=== PATIENT | female | born 1945 | race Caucasian/White ===

== ENCOUNTER 2022-02-08 16:16 | Observation (INO) ==
[2022-02-08 17:03] LABS: Basophils # (auto) 0.05 K/uL (0-0.2); Basophils % (auto) 0.6 %; Eosinophils # (auto) 0.42 K/uL (0-0.5); Eosinophils % (auto) 5.2 %; Hematocrit (blood only) 44.6 % (37-47); Immature Granulocytes # (auto) 0.01 K/uL (0.00-0.02); Immature Granulocytes % (auto) 0.1 %; Lymphocytes # (auto) 2.73 K/uL (1.2-3.4); Lymphocytes % (auto) 33.7 %; Mean Corpuscular Hemoglobin 28.6 pg (25-34); Mean Corpuscular Hgb Conc 33.6 g/dL (32-36); Mean Corpuscular Volume 85.1 fL (80-100); Mean Platelet Volume 10.4 fL (7.4-10.4); Monocytes # (auto) 0.75 K/uL (0.11-0.59); Monocytes % (auto) 9.3 %; Neutrophils # (auto) 4.13 K/uL (1.4-6.5); Neutrophils % (auto) 51.1 %; Platelet Count 217 K/uL (130-400); RDW Coefficient of Variation 13.8 % (11.5-14.5); Red Blood Count 5.24 M/uL (4.2-5.4); White Blood Count 8.09 K/uL (4.8-10.8)
--- NOTE | 2022-02-08 17:09 | Emergency Department Note ---
Impression & Plan Heart block AV second degree ED Provider Note NAME: ABEL CHEN AGE: 76 SEX: F : 1945 ARRIVES VIA: Walk-In INFORMANT: Patient, ED PROVIDER(S): Jaswinder Lane DO CHIEF COMPLAINT: Generalized weakness HPI: The patient is a 76-year-old female who presented to the emergency department for an evaluation of generalized weakness. The patient started noticing symptoms recently where she was having generalized weakness as well as dyspnea on exertion. The patient denies having any fever. She denies having any chest pain. She has had no lower extremity swelling. She denies having any rashes or other illnesses. She states that the symptoms may have begun a week or so ago. She went to see her family doctor today but was sent to the emergency department because of an abnormal EKG. The patient was noted to have bradycardia. She does not take a beta-sheryl. She does not have a history of Lyme disease. She does have a remote history of endocarditis. The patient states that she had an EKG done in the office. She states that her family doctor did consult with cardiology and the patient was referred to the emergency department. Patient states that her symptoms improved with rest. ROS: See above HPI for pertinent positives & negatives. A total of 10 systems reviewed and were otherwise negative. PAST MEDICAL HISTORY: See Below PAST SURGICAL HISTORY: See Below FAMILY HISTORY: See Below SOCIAL HISTORY: See Below HOME MEDICATIONS: See Below ALLERGIES: See Below VITALS: See Below PHYSICAL EXAMINATION: GENERAL: Patient is awake alert in no acute distress patient is resting comfortably and showing no signs of anxiety EYES: The conjunctivae are clear. The pupils are round and reactive. EARS, NOSE, MOUTH AND THROAT: The nose is without any evidence of any deformity. NECK: The neck is nontender and supple. RESPIRATORY: Normal respiratory effort is noted there is no evidence of wheezing rhonchi or rales CARDIOVASCULAR: Bradycardic heart sounds were noted to auscultation. There is no definite murmur. GASTROINTESTINAL: The abdomen is soft. Abdomen is nontender. MUSCULOSKELETAL/EXTREMITIES: There is no evidence of gross deformity full range of motion is noted in the hips and shoulders. SKIN: There is no obvious evidence of any rash. There are no petechiae, pallor or cyanosis noted. NEUROLOGIC: Patient is awake alert and oriented x3 MEDICAL DECISION MAKING: The patient is a 76-year-old female who presented to the emergency department for an evaluation of abnormal EKG. Patient was having generalized weakness as well as some shortness of breath with exertion. She was noted to have heart block and was sent to the emergency department for further evaluation. The patient's blood pressure was not low. She was symptomatic with any exertion. I discussed the patient's laboratory and radiographic studies with her. I also discussed her case with the [facility] They have agreed to evaluate the patient in the emergency department for further management and disposition. Triage Nursing notes reviewed. Prior medical records reviewed Vital Signs: reviewed and remarkable for bradycardia and hypertension. Differential diagnosis: Infection, dehydration, metabolic abnormality, hypo/hyperglycemia, electrolyte disturbance, anemia, hypoxia, cardiac sources, intracerebral event, toxicologic, neurologic, as well as other pathologies. ER treatment provided: See below Diagnostics interpreted by me: ECG: EKG was obtained in the emergency department. My interpretation is second- degree heart block at 45 bpm. There were no PVCs noted. There is no acute ST segment abnormalities noted. No previous tracing was available. Cardiac Monitoring: An order was placed for continuous cardiac monitoring. The monitor shows a rate of 44 bpm with second-degree heart block. Laboratory studies: As stated above and show below. Imaging studies: See below Consultation(s): I discussed this case with Ashanti who is [facility] for [facility]. Past Med/Surg History Medical History (Updated 02/08/22 @ 23:[address] DO) Diabetes Hypertension Hypothyroidism (acquired) Pancreatic cyst Surgical History H/O: hysterectomy History of bowel resection Hx of cholecystectomy Social History Smoking Status: Never smoker Hx Alcohol Use: No Hx Substance Use: No Preferred Language: Lithuanian Beliefs That Will Affect Care: None Current Living Situation: Spouse Feels Safe at Home: Yes Safety Concerns: Feels Safe At This Time Assistive Devices: None Allergies Allergies Allergy/AdvReac Type Severity Reaction Status Date / Time Penicillins Allergy Severe Anaphylaxis Verified 02/08/22 17:50 house dust Allergy Intermediate SNEEZING, Verified 02/08/22 17:50 CONGESTION mold Allergy Intermediate SNEEZING, Verified 02/08/22 17:50 CONGESTION Sulfa (Sulfonamide Allergy Intermediate Hives Verified 02/08/22 17:50 Antibiotics) Yeast Allergy Intermediate SNEEZING, Verified 02/08/22 17:50 CONGESTION nickel Allergy Mild Rash Verified 02/08/22 17:50 Iodinated Contrast Media AdvReac Intermediate FACE Verified 02/08/22 17:50 FLUSHES, VOMITING MYCINS Allergy Severe SHORT OF Uncoded 02/08/22 17:50 BREATH, HIVES Home Meds Home Medications Medication Instructions Recorded Confirmed Prevagen 10 mg PO DAILY 02/08/22 02/08/22 cetirizine 5 mg tablet 5 mg PO DAILY 02/08/22 02/08/22 cranberry 400 mg capsule 400 mg PO DAILY 02/08/22 02/08/22 cyanocobalamin (vitamin B-12) 100 100 mcg PO DAILY 02/08/22 02/08/22 mcg tablet (Vitamin B-12) gppyuwunawm-[id number]-erh C-Mn 500 1 cap PO BID 02/08/22 02/08/22 mg-400 mg capsule krill 1,000 mg-omega-3 170 mg-dha 1 cap PO DAILY 02/08/22 02/08/22 50 mg-epa 80 [id number]-bvixpg-jqtti capsule (krill oil) levothyroxine 112 mcg tablet 112 mcg PO DAILYBB 02/08/22 02/08/22 lisinopril 30 mg tablet 30 mg PO DAILY 02/08/22 02/08/22 multivit with min-folic 1 tab PO DAILY 02/08/22 02/08/22 acid-lutein 200 mcg-137.5 mcg chewable tablet (Adult Multivitamin (w-lutein)) psyllium 1 tbsp PO DAILY 02/08/22 02/08/22 sucralfate 1 gram tablet 1 g PO TID PRN 02/08/22 02/08/22 Results & Data (ED) Vital Signs Vital Signs - 24 hr 02/08/22 16:27 02/08/22 17:15 Temperature 36.9 C Temperature Source Temporal Artery Scan Pulse Rate 43 L Pulse Rate [Apical] 45 L Pulse Rhythm [Apical] Regular Pulse Strength [Apical] Normal Respiratory Rate 16 15 Blood Pressure 198/68 H Blood Pressure [Right Arm] 170/72 H Blood Pressure Mean 111 Blood Pressure Mean [Right Arm] 104 Pulse Oximetry 96 95 Oxygen Delivery Method Room Air Room Air Sepsis Recent Fever Within 48 Hours No Sepsis New/Unexplained Change in Mental Status N/A Sepsis Action Taken by Nursing No Action Required Home Medications Current Medication List: was personally reviewed by me Laboratory Data Attestation: I reviewed the patient's lab results. Result diagrams: 02/08/22 16:40 02/09/22 05:19 Lab Results 02/08/22 02/08/22 02/08/22 Range/Units 16:40 16:40 16:40 WBC 8.09 (4.8-10.8) K/uL RBC 5.24 (4.2-5.4) M/uL Hgb 15.0 (12.0-16.0) g/dL Hct 44.6 (37-47) % MCV 85.1 (80-100) fL MCH 28.6 (25-34) pg MCHC 33.6 (32-36) g/dL RDW Std Deviation 43.0 (36.4-46.3) fL RDW Coeff of Valerie 13.8 (11.5-14.5) % Plt Count 217 (130-400) K/uL MPV 10.4 (7.4-10.4) fL Immature Gran % (Auto) 0.1 % Neut % (Auto) 51.1 % Lymph % (Auto) 33.7 % [place] % (Auto) 9.3 % Eos % (Auto) 5.2 % Baso % (Auto) 0.6 % Neut # (Auto) 4.13 (1.4-6.5) K/uL Lymph # (Auto) 2.73 (1.2-3.4) K/uL [place] # (Auto) 0.75 H (0.11-0.59) K/uL Eos # (Auto) 0.42 (0-0.5) K/uL Baso # (Auto) 0.05 (0-0.2) K/uL Immature Gran # (Auto) 0.01 (0.00-0.02) K/uL PT 12.1 H (9.0-12.0) Seconds INR 1.1 (0.9-1.1) APTT 27.5 (21.0-31.0) Seconds PTT Ratio 1.0 Sodium 141 (136-145) mmol/L Potassium 4.3 (3.5-5.1) mmol/L Chloride 107 (98-107) mmol/L Carbon Dioxide 27 (21-32) mmol/L Anion Gap 7 (3-11) BUN 20 (6-23) mg/dl Creatinine 0.90 (0.6-1.2) mg/dl Est Cr Clr Drug Dosing Not Reportable Est GFR ( Amer) 73.0 ml/min Est GFR (Non-Af Amer) 63.0 ml/min BUN/Creatinine Ratio 22.2 H (10-20) Glucose 130 H (70-99(Fasting)) mg/dl Calcium 9.4 (8.5-10.1) mg/dl Magnesium 2.2 (1.7-2.4) mg/dl Total Bilirubin 0.6 (0.2-1.0) mg/dl AST 22 (13-39) U/L ALT 22 (7-52) U/L Alkaline Phosphatase 164 H (34-104) U/L Troponin I High Sens 19.3 H (0-14) pg/ml Total Protein 7.4 (6.0-8.3) gm/dl Albumin 4.3 (3.4-5.0) gm/dl Globulin 3.1 (2.5-4.0) gm/dl Albumin/Globulin Ratio 1.4 (0.9-2) TSH (0.300-4.500) uIu/ml Lyme Disease IgG Ab (Negative) Lyme Disease IgM Ab (Negative) SARS-CoV-2, RNA, NAAT (NEGATIVE) 02/08/22 02/08/22 02/08/22 Range/Units 17:15 17:15 17:19 WBC (4.8-10.8) K/uL RBC (4.2-5.4) M/uL Hgb (12.0-16.0) g/dL Hct (37-47) % MCV (80-100) fL MCH (25-34) pg MCHC (32-36) g/dL RDW Std Deviation (36.4-46.3) fL RDW Coeff of Valerie (11.5-14.5) % Plt Count (130-400) K/uL MPV (7.4-10.4) fL Immature Gran % (Auto) % Neut % (Auto) % Lymph % (Auto) % [place] % (Auto) % Eos % (Auto) % Baso % (Auto) % Neut # (Auto) (1.4-6.5) K/uL Lymph # (Auto) (1.2-3.4) K/uL [place] # (Auto) (0.11-0.59) K/uL Eos # (Auto) (0-0.5) K/uL Baso # (Auto) (0-0.2) K/uL Immature Gran # (Auto) (0.00-0.02) K/uL PT (9.0-12.0) Seconds INR (0.9-1.1) APTT (21.0-31.0) Seconds PTT Ratio Sodium (136-145) mmol/L Potassium (3.5-5.1) mmol/L Chloride (98-107) mmol/L Carbon Dioxide (21-32) mmol/L Anion Gap (3-11) BUN (6-23) mg/dl Creatinine (0.6-1.2) mg/dl Est Cr Clr Drug Dosing Est GFR ( Amer) ml/min Est GFR (Non-Af Amer) ml/min BUN/Creatinine Ratio (10-20) Glucose (70-99(Fasting)) mg/dl Calcium (8.5-10.1) mg/dl Magnesium (1.7-2.4) mg/dl Total Bilirubin (0.2-1.0) mg/dl AST (13-39) U/L ALT (7-52) U/L Alkaline Phosphatase (34-104) U/L Troponin I High Sens (0-14) pg/ml Total Protein (6.0-8.3) gm/dl Albumin (3.4-5.0) gm/dl Globulin (2.5-4.0) gm/dl Albumin/Globulin Ratio (0.9-2) TSH 0.944 (0.300-4.500) uIu/ml Lyme Disease IgG Ab Negative (Negative) Lyme Disease IgM Ab Negative (Negative) SARS-CoV-2, RNA, NAAT NEGATIVE (NEGATIVE) Administered Medications Cetirizine HCl (Cetirizine Hcl 10 Mg Tablet) 5 mg PO DAILY RADHA Stop: 03/11/22 08:59 Last Admin: 02/09/22 08:27 Dose: 5 mg Documented by: [id number] Cyanocobalamin (Cyanocobalamin (B-12) 100 Mcg Tablet) 100 mcg PO DAILY RADHA Stop: 03/11/22 08:59 Last Admin: 02/09/22 08:29 Dose: 100 mcg Documented by: [id number] Enoxaparin Sodium (Enoxaparin Inj 40 Mg/0.4 Ml Syr) 40 mg SQ QAM RADHA Stop: 03/11/22 08:59 Last Admin: 02/09/22 08:29 Dose: 40 mg Documented by: [id number] Insulin Aspart (Insulin Aspart Per Unit) 0 units SC ACHS RADHA Stop: 03/10/22 20:59 Last Admin: 02/09/22 13:23 Dose: Not Given Documented by: [id number] Cosigned by: [id number] Admin: 02/09/22 08:04 Dose: Not Given Documented by: [id number] Cosigned by: [id number] Admin: 02/08/22 22:12 Dose: Not Given Documented by: [id number] Levothyroxine Sodium (Levothyroxine Sodium 112 Mcg Tablet) 112 mcg PO DAILYBB [facility] Stop: 03/11/22 06:29 Last Admin: 02/09/22 05:59 Dose: 112 mcg Documented by: [id number] Lisinopril (Lisinopril 10 Mg Tab) 30 mg PO DAILY [facility] Stop: 03/11/22 08:59 Last Admin: 02/09/22 08:29 Dose: 30 mg Documented by: [id number] Miscellaneous (Prevagen (?): Order Awaiting Action) 1 ea N/A QS [facility] Stop: 03/11/22 07:59 Last Admin: 02/09/22 08:55 Dose: Not Given Documented by: [id number] Psyllium Hydrophilic Mucilloid (Psyllium 58.6% Powder Packet) 1 pkt PO DAILY [facility] Stop: 03/11/22 08:59 Last Admin: 02/09/22 08:31 Dose: 1 pkt Documented by: [id number] Discontinued Medications Hydralazine HCl (Hydralazine Hcl 25 Mg Tab) 25 mg PO NOW STA Stop: 02/08/22 19:31 Last Admin: 02/08/22 19:34 Dose: 25 mg Documented by: [id number] Insulin Aspart (Insulin Aspart Per Unit) 0 units SC ACHS RADHA Stop: 03/10/22 20:59 Last Admin: 02/09/22 00:45 Dose: Not Given Documented by: [id number] Imaging Data Radiologist's Impression: Chest X-Ray 02/08/22 16:29 XR chest 1V portable CLINICAL HISTORY: Atypical chest pain TECHNIQUE: Single frontal radiograph of the chest was obtained. Comparison: None available at the time of this dictation. FINDINGS: No lines and tubes are seen. The cardiomediastinal silhouette is normal. The lungs are clear. No evidence of pleural effusion or pneumothorax. IMPRESSION: No acute chest disease. ACT 112: Negative or not required by law. Electronically signed by: Ayan Barfield M.D. 02/08/2022 6:35 PM Discharge Plan Visit Data Chief Complaint: Bradycardia Stated Complaint: BRADYCARDIA ED Provider: Jaswinder Lane Discharge Problem: Heart block AV second degree Patient Disposition: Admitted As Inpatient Discharge Instructions Interventions: ED Discharge Assessment Last Done: 02/08/22 19:56
[2022-02-08 17:12] LABS: INR 1.1 (0.9-1.1); Partial Thromboplastin Time 27.5 Seconds (21.0-31.0); Prothrombin Time 12.1 Seconds (9.0-12.0)
[2022-02-08 17:42] LABS: Troponin I High Sensitivity 19.3 pg/ml (0-14)
[2022-02-08 17:45] LABS: Alanine Aminotransferase 22 U/L (7-52); Albumin Globulin Ratio 1.4 (0.9-2); Albumin Level 4.3 gm/dl (3.4-5.0); Alkaline Phosphatase 164 U/L (34-104); Anion Gap 7 (3-11); Aspartate Aminotransferase 22 U/L (13-39); BUN Creatinine Ratio 22.2 (10-20); Bilirubin,Total 0.6 mg/dl (0.2-1.0); Blood Urea Nitrogen 20 mg/dl (6-23); Calcium 9.4 mg/dl (8.5-10.1); Carbon Dioxide 27 mmol/L (21-32); Chloride 107 mmol/L (98-107); Globulin 3.1 gm/dl (2.5-4.0); Glucose 130 mg/dl (70-99(Fasting)); Magnesium 2.2 mg/dl (1.7-2.4); Potassium 4.3 mmol/L (3.5-5.1); Sodium 141 mmol/L (136-145); Total Protein 7.4 gm/dl (6.0-8.3)
[2022-02-08 18:13] LABS: Lyme Ab IgG w/WB Rflx Negative (Negative)
[2022-02-08 18:14] LABS: Lyme Ab IgM w/WB Rflx Negative (Negative)
--- NOTE | 2022-02-08 18:14 | History & Physical Report ---
Date of Service February 08, 2022 Assessment & Plan (1) 2nd degree AV block: Plan: - Admit to tele for 2nd degree AV block and bradycardia in the high 30s as an outpatient today - Not on beta blockade - Lyme testing is negative - Check 2D echo - Consult cardiology - BP elevated currently so will give hydralazine po and monitor, will continue lisinopril daily (2) Hypertension: Plan: -Continue lisinopril 30 mg daily (3) Diabetes: Plan: - Was taken off Januvia as outpatient earlier today by PCP, monitor glucose of BMP with am labs - ISS with accuchecks pending readings - A1C= 6.7 from 02/03/22 on outpatient record review - pt reports she has trialed metformin and januvia but didnt tolerate them. (4) Hypothyroidism (acquired): Plan: - Cont levothyroxine, follow TSH and free T4 DVT PPx: - teds, scds, Lovenox subcu CODE: Full code Dispo: From home, likely to remain in the hospital x 1-2 days History of Present Illness Primary Care Provider: NO PCP This is a 76-year-old female with PMHx of HTN, DM type II, obesity, hypothyroidism, fibromyalgia, osteoarthritis, vitamin D deficiency, pancreatic cyst, and bradycardia who presented to her PCP for routine follow-up and found to be bradycardic with a heart rate in the high 30s at outpatient office and EKG showed second-degree block so was referred to the ER. Patient admits to having dyspnea on exertion which has been going on for the past 2 weeks. She states she had her second covid booster shot 2 weeks ago and since then she has not been feeling herself. She had a pneumonia shot today in the office and her left arm is sore again.She does not have any other cardiac complaints- denies headache, lightheadedness, palpitations, or abdominal complaints. She lives at home with her and a grandson, her daughter is here at bedside. She does not wear O2 at baseline and walks without ambulatory assistive device. Many years ago, she was hospitalized for endocarditis and spent a week in the ICU. After that point she was told to not do anything physically exertional for 6 months, and on repeat imaging studies her heart had healed. She has not followed with cardiology for any other reason. She took all her routinely scheduled medications earlier today. Allergies Allergy/AdvReac Type Severity Reaction Status Date / Time Penicillins Allergy Severe Anaphylaxis Verified 02/08/22 17:50 house dust Allergy Intermediate SNEEZING, Verified 02/08/22 17:50 CONGESTION mold Allergy Intermediate SNEEZING, Verified 02/08/22 17:50 CONGESTION Sulfa (Sulfonamide Allergy Intermediate Hives Verified 02/08/22 17:50 Antibiotics) Yeast Allergy Intermediate SNEEZING, Verified 02/08/22 17:50 CONGESTION nickel Allergy Mild Rash Verified 02/08/22 17:50 Iodinated Contrast Media AdvReac Intermediate FACE Verified 02/08/22 17:50 FLUSHES, VOMITING MYCINS Allergy Severe SHORT OF Uncoded 02/08/22 17:50 BREATH, HIVES Home Medications Medication Instructions Recorded Confirmed Type Prevagen 10 mg PO DAILY 02/08/22 02/08/22 History cetirizine 5 mg tablet 5 mg PO DAILY 02/08/22 02/08/22 History cranberry 400 mg capsule 400 mg PO DAILY 02/08/22 02/08/22 History cyanocobalamin (vitamin B-12) 100 100 mcg PO DAILY 02/08/22 02/08/22 History mcg tablet (Vitamin B-12) hfvnflalozv-hpfsqbumf-fzj C-Mn 500 1 cap PO BID 02/08/22 02/08/22 History mg-400 mg capsule krill 1,000 mg-omega-3 170 mg-dha 1 cap PO DAILY 02/08/22 02/08/22 History 50 mg-epa 80 hq-ismqhx-kwwrp capsule (krill oil) levothyroxine 112 mcg tablet 112 mcg PO DAILYBB 02/08/22 02/08/22 History lisinopril 30 mg tablet 30 mg PO DAILY 02/08/22 02/08/22 History multivit with min-folic 1 tab PO DAILY 02/08/22 02/08/22 History acid-lutein 200 mcg-137.5 mcg chewable tablet (Adult Multivitamin (w-lutein)) psyllium 1 tbsp PO DAILY 02/08/22 02/08/22 History sucralfate 1 gram tablet 1 g PO TID PRN 02/08/22 02/08/22 History Past Med/Surg History Medical History (Updated 02/08/22 @ 18:19 by Lexis Crowley PA-C) Diabetes Hypertension Hypothyroidism (acquired) Pancreatic cyst Surgical History H/O: hysterectomy History of bowel resection Hx of cholecystectomy Social History Smoking Status: Never smoker Hx Alcohol Use: No Hx Substance Use: No Preferred Language: Venezuelan Beliefs That Will Affect Care: None Current Living Situation: Spouse Feels Safe at Home: Yes Safety Concerns: Feels Safe At This Time Assistive Devices: Glasses Review of Systems Review of Systems: Constitutional: No fever, sweats or chills Eyes: No diplopia, no worsening or blurred vision ENT: normal hearing, no trouble swallowing Respiratory: No cough, sputum, + dyspnea at rest and on exertion Cardiovascular: No chest pain, tightness or palpitations Abdomen: No pain, nausea, vomiting, diarrhea or constipation Musculoskeletal: No joint pain, calf pain, swelling Neurologic: No weakness, numbness/tingling, or balance problems Psychiatric: No anxiety or depression Skin: No rash or itch Physical Exam Physical Exam: General: awake, alert, no apparent distress, +obese Head: Normocephalic, atraumatic ENT: PERRL, EOMI, no pharyngeal exudate, mucous membranes moist Chest: Clear to auscultation, on room air, no adventitious breath sounds Cardiac: Bradycardic with HR in the 40s, no murmur, no JVD, normal peripheral pulses, good capillary refill Abdominal: NABS x 4 quadrants, soft, nondistended, nontender to palpation, no rebound or guarding Extremities: Normal inspection, no peripheral edema or erythema, calfs nontender to palpation Psych: Normal mood and affect Neuro: AAO x 3, strength intact bilaterally and rated 5/5, no motor deficits, speech is clear, no peripheral sensory deficits Results & Data Results & Data ([facility]) Vital Signs (Past 12 Hours) Vital Signs Temp Pulse Pulse Resp BP BP Pulse Ox 02/08/22 17:15 45 L 15 170/72 H 95 02/08/22 16:27 36.9 C 43 L 16 198/68 H 96 Laboratory Results 02/08/22 02/08/22 02/08/22 17:19 17:15 16:40 WBC RBC Hgb Hct MCV MCH MCHC RDW Std Deviation RDW Coeff of Valerie Plt Count MPV Immature Gran % (Auto) Neut % (Auto) Lymph % (Auto) [place] % (Auto) Eos % (Auto) Baso % (Auto) Neut # (Auto) Lymph # (Auto) [place] # (Auto) Eos # (Auto) Baso # (Auto) Immature Gran # (Auto) PT INR APTT PTT Ratio Sodium 141 Potassium 4.3 Chloride 107 Carbon Dioxide 27 Anion Gap 7 BUN 20 Creatinine 0.90 Est Cr Clr Drug Dosing Not Reportable Est GFR ( Amer) 73.0 Est GFR (Non-Af Amer) 63.0 BUN/Creatinine Ratio 22.2 H Glucose 130 H Calcium 9.4 Magnesium 2.2 Total Bilirubin 0.6 AST 22 ALT 22 Alkaline Phosphatase 164 H Troponin I High Sens 19.3 H Total Protein 7.4 Albumin 4.3 Globulin 3.1 Albumin/Globulin Ratio 1.4 Lyme Disease IgG Ab Negative Lyme Disease IgM Ab Negative SARS-CoV-2, RNA, NAAT NEGATIVE 02/08/22 02/08/22 16:40 16:40 WBC 8.09 RBC 5.24 Hgb 15.0 Hct 44.6 MCV 85.1 MCH 28.6 MCHC 33.6 RDW Std Deviation 43.0 RDW Coeff of Valerie 13.8 Plt Count 217 MPV 10.4 Immature Gran % (Auto) 0.1 Neut % (Auto) 51.1 Lymph % (Auto) 33.7 [place] % (Auto) 9.3 Eos % (Auto) 5.2 Baso % (Auto) 0.6 Neut # (Auto) 4.13 Lymph # (Auto) 2.73 [place] # (Auto) 0.75 H Eos # (Auto) 0.42 Baso # (Auto) 0.05 Immature Gran # (Auto) 0.01 PT 12.1 H INR 1.1 APTT 27.5 PTT Ratio 1.0 Sodium Potassium Chloride Carbon Dioxide Anion Gap BUN Creatinine Est Cr Clr Drug Dosing Est GFR ( Amer) Est GFR (Non-Af Amer) BUN/Creatinine Ratio Glucose Calcium Magnesium Total Bilirubin AST ALT Alkaline Phosphatase Troponin I High Sens Total Protein Albumin Globulin Albumin/Globulin Ratio Lyme Disease IgG Ab Lyme Disease IgM Ab SARS-CoV-2, RNA, NAAT ECG Additional Comments: 08-FEB-2022 16:33:35 [facility]-EDSTAT ROUTINE RETRIEVAL Sinus rhythm with 2nd degree A-V block with 2:1 A-V conduction Possible Left atrial enlargement Abnormal ECG No previous ECGs available 25mm/s10mm/[id number] 241CID: 11Unconfirmed Vent. rate 45 BPM CA interval 184 ms QRS duration 86 ms QT/QTc 474/410 ms Code Status & VTE Plan Code Status Full code- discussed with the patient at bedside Supervising Physician Co-Signing Physician Notes Pt is a 76 y/o F with hx of DMII (not on any medication), HTN, hypothyroidism, Pancreatic cyst, seasonal allergies admitted for worsening HORTON with Bradycardia. PE: NAD, well developed Lungs: CTA, no wheezing or crackles Cardiac: Normal S1/S2 with systolic murmur Abd: ND, soft, NT MSK: no LE edema Psych: AAOx3, normal affect A/P: Bradycardia with 2nd degree heart block: -lyme test is neg -will get echo -hs Trop is elevated: will trend -Cardiology consult - admit to PCU tele HTN: -current BP is elevated will do prn Hydralazine -continue home HTN meds Hypothyroidism: -continue levothyroxine DMII: -diet controlled -last A1C was 6.7 -ISS Agree with A/P by Lexis Crowley PA-C
--- NOTE | 2022-02-08 18:36 | XRay Report ---
XR chest 1V portable CLINICAL HISTORY: Atypical chest pain TECHNIQUE: Single frontal radiograph of the chest was obtained. Comparison: None available at the time of this dictation. FINDINGS: No lines and tubes are seen. The cardiomediastinal silhouette is normal. The lungs are clear. No evid ence of pleural effusion or pneumothorax. IMPRESSION: No acute chest disease. ACT 112: Negative or not required by law. Electronically signed by: Ayan Barfield M.D. 02/08/2022 6:35 PM
[2022-02-08] MEDS ORDERED: hydrALAZINE HCL 25 MG TAB PO STA (19:30)
[2022-02-08] MEDS ORDERED: GLUCOSE 10 TABS/TUBE PO PRN ×2 (20:21→20:57)
[2022-02-08] MEDS ORDERED: CARBOHYDRATES FOR HYPOGLYCEMIA PO PRN ×2 (20:21→20:57)
[2022-02-08] MEDS ORDERED: GLUCOSE 40% GEL 15 GM TUBE PO PRN ×2 (20:21→20:57)
[2022-02-08] MEDS ORDERED: ONDANSETRON INJ 2 MG/ML 2 ML VIAL IV PRN (20:21)
[2022-02-08] MEDS ORDERED: DEXTROSE 50% 50 ML SYRINGE IV PRN ×2 (20:21→20:57)
[2022-02-08] MEDS ORDERED: GLUCAGON FOR INJ 1 MG VIAL SQ PRN ×2 (20:21→20:57)
[2022-02-08] MEDS ORDERED: SUCRALFATE 1 GM TAB PO PRN (20:21)
[2022-02-08] MEDS ORDERED: ACETAMINOPHEN 325 MG TAB PO PRN (20:21)
[2022-02-08] MEDS ORDERED: INSULIN ASPART PER UNIT SC SCH (21:00)
[2022-02-08] MEDS ORDERED: PSYLLIUM or GUAR GUM FIBER POWDER PACKET PO PRN (21:07)
[2022-02-08] MEDS: INSULIN ASPART PER UNIT SC SCH (22:12)
[2022-02-09] MEDS: LEVOTHYROXINE SODIUM 112 MCG TABLET PO SCH (05:59)
[2022-02-09 06:18] LABS: Albumin Globulin Ratio 1.3 (0.9-2); Albumin Level 3.9 gm/dl (3.4-5.0); BUN Creatinine Ratio 20.3 (10-20); Bilirubin,Total 0.9 mg/dl (0.2-1.0); Chol HDL Ratio 3.9 (0-5); Creatinine Clr Calc Pharmacy 71.7 ml/min; Est GFR (African American) 85.5 ml/min; Est GFR (Non-African American) 73.7 ml/min; Magnesium 2.2 mg/dl (1.7-2.4); Potassium 3.9 mmol/L (3.5-5.1); Total Protein 6.9 gm/dl (6.0-8.3)
[2022-02-09 07:51] LABS: Estimated Average Glucose 143 mg/dl; Hemoglobin A1C 6.6 % (4.5-5.6)
[2022-02-09] MEDS: INSULIN ASPART PER UNIT SC SCH ×4 (08:04→20:56)
[2022-02-09] MEDS: CETIRIZINE HCL 10 MG TABLET PO SCH (08:27)
[2022-02-09] MEDS: lisinopril 10 MG TAB PO SCH (08:29)
[2022-02-09] MEDS: CYANOCOBALAMIN (B-12) 100 MCG TABLET PO SCH (08:29)
[2022-02-09] MEDS: ENOXAPARIN INJ 40 MG/0.4 ML SYR SQ SCH (08:29)
--- NOTE | 2022-02-09 08:35 | Cardiology Consultation ---
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 She is not currently on any AV antwan blocking agents. Lyme testing negative. -Discussed possible need for PPM, patient agreeable should procedure be warranted- patient does have a contrast dye allergy resulting in anaphylaxis. -Discussed with Dr. Lomeli, EP to be consulted. (2) Hypertension: Normally well controlled as an outpatient on Lisinopril. Will hold off on changes at this time. Can consider increase in Lisinopril to 40 mg daily should BP remain uncontrolled. Case discussed with Dr. Lomeli. Supervising Physician Co-Signing Physician Notes Patient seen and examined with SHIRLEY Vo. Agree with findings and assessment as above. History of Present Illness Reason for Consultation: Bradycardia- second degree HB Requesting Physician: Yarely Adames Attending Physician: Marco Moffett MD History of Present Illness 76 year old female. Does not follow with outpatient cardiology. Seen by PCP yesterday for a routine appt. Did have concerns of dyspnea x2 weeks- started after her 4th covid booster. EKG done- found to be in a second degree AV block, Mobitz II. Heart rates in the 30s. She was not on any AV antwan blocking agents. Just took lisinopril for HTN. Renal function stable. No electrolyte abnormalities. Lyme testing negative. CXR negative. Echo pending. Upon entrance into the room patient was lying in bed without acute distress. Continues to have shortness of breath with exertion, but has been primarily confined to the bed since she arrived. No chest pain, palpitations, dizziness, syncope or near syncope. Does note fatigue and low stamina. No orthopnea, PND, or increased lower extremity edema. No fever, chills, cough, hematochezia, melena, or hemoptysis. PROBLEM LIST: H/o Endocarditis, 1971 HTN DM II Hypothyroidism *CONTRAST DYE ALLERGY- ANAPHYLAXIS Allergies Allergy/AdvReac Type Severity Reaction Status Date / Time Penicillins Allergy Severe Anaphylaxis Verified 02/08/22 17:50 house dust Allergy Intermediate SNEEZING, Verified 02/08/22 17:50 CONGESTION mold Allergy Intermediate SNEEZING, Verified 02/08/22 17:50 CONGESTION Sulfa (Sulfonamide Allergy Intermediate Hives Verified 02/08/22 17:50 Antibiotics) Yeast Allergy Intermediate SNEEZING, Verified 02/08/22 17:50 CONGESTION nickel Allergy Mild Rash Verified 02/08/22 17:50 Iodinated Contrast Media AdvReac Intermediate FACE Verified 02/08/22 17:50 FLUSHES, VOMITING MYCINS Allergy Severe SHORT OF Uncoded 02/08/22 17:50 BREATH, HIVES Home Medications Medication Instructions Recorded Confirmed Type Prevagen 10 mg PO DAILY 02/08/22 02/08/22 History cetirizine 5 mg tablet 5 mg PO DAILY 02/08/22 02/08/22 History cranberry 400 mg capsule 400 mg PO DAILY 02/08/22 02/08/22 History cyanocobalamin (vitamin B-12) 100 100 mcg PO DAILY 02/08/22 02/08/22 History mcg tablet (Vitamin B-12) nzrnuttkyhv-yphdllxbe-qsk C-Mn 500 1 cap PO BID 02/08/22 02/08/22 History mg-400 mg capsule krill 1,000 mg-omega-3 170 mg-dha 1 cap PO DAILY 02/08/22 02/08/22 History 50 mg-epa 80 qw-psknaq-noobm capsule (krill oil) levothyroxine 112 mcg tablet 112 mcg PO DAILYBB 02/08/22 02/08/22 History lisinopril 30 mg tablet 30 mg PO DAILY 02/08/22 02/08/22 History multivit with min-folic 1 tab PO DAILY 02/08/22 02/08/22 History acid-lutein 200 mcg-137.5 mcg chewable tablet (Adult Multivitamin (w-lutein)) psyllium 1 tbsp PO DAILY 02/08/22 02/08/22 History sucralfate 1 gram tablet 1 g PO TID PRN 02/08/22 02/08/22 History Patient History Medical History (Updated 02/08/22 @ 23:[address] DO) Diabetes Hypertension Hypothyroidism (acquired) Pancreatic cyst Surgical History H/O: hysterectomy History of bowel resection Hx of cholecystectomy Social History Smoking Status: Never smoker Hx Alcohol Use: No Hx Substance Use: No Preferred Language: Venezuelan Beliefs That Will Affect Care: None Current Living Situation: Spouse Feels Safe at Home: Yes Assistive Devices: None Review of Systems Review of Systems: All systems reviewed & are unremarkable except as noted in HPI & below Physical Exam Physical Exam: General: No acute distress. A+Ox3. HEENT: Normocephalic. Atraumatic. Conjunctiva and sclera clear. NECK: No carotid bruits. No JVD. Carotid upstrokes are brisk. Heart: RRR. S1 and S2 noted without murmur, rubs, gallops. PMI non displaced. Lungs: Clear to auscultation. No wheezes, rhonchi, rales. Abdomen: Normal bowel sounds. Soft. Nontender. No masses or organomegaly. No abdominal bruits. Extremities: No edema. No clubbing or cyanosis. Pulses: radial=2/4, posterior tibial=2/4, dorsalis pedis = 2/4. NEURO: No focal deficits. PSYCH: Normal. Results & Data ([facility]) Vital Signs (Past 12 Hours) Vital Signs Temp Pulse Pulse Resp BP Pulse Ox 02/09/22 07:21 40 L 02/09/22 07:15 36.6 C 40 L 18 150/69 H 94 02/09/22 04:02 36.7 C 38 L 18 128/64 93 02/09/22 00:00 41 L 02/08/22 23:13 36.7 C 41 L 19 198/88 H 98 Laboratory Results Cardiac Enzymes 02/08/22 02/09/22 Range/Units 16:40 05:19 AST 22 19 (13-39) U/L Coagulation 02/08/22 Range/Units 16:40 PT 12.1 H (9.0-12.0) Seconds APTT 27.5 (21.0-31.0) Seconds Lipids 02/09/22 Range/Units 05:19 Triglycerides 197 H (0-150) mg/dl Cholesterol 170 (0-200) mg/dl HDL Cholesterol 44 mg/dl Cholesterol/HDL Ratio 3.9 (0-5) CBC 02/08/22 Range/Units 16:40 WBC 8.09 (4.8-10.8) K/uL RBC 5.24 (4.2-5.4) M/uL Hgb 15.0 (12.0-16.0) g/dL Hct 44.6 (37-47) % Plt Count 217 (130-400) K/uL Neut # (Auto) 4.13 (1.4-6.5) K/uL Lymph # (Auto) 2.73 (1.2-3.4) K/uL Upson # (Auto) 0.75 H (0.11-0.59) K/uL Eos # (Auto) 0.42 (0-0.5) K/uL Baso # (Auto) 0.05 (0-0.2) K/uL Comprehensive Metabolic Panel 02/08/22 02/09/22 Range/Units 16:40 05:19 Sodium 141 142 (136-145) mmol/L Potassium 4.3 3.9 (3.5-5.1) mmol/L Chloride 107 109 H (98-107) mmol/L Carbon Dioxide 27 24 (21-32) mmol/L BUN 20 16 (6-23) mg/dl Creatinine 0.90 0.79 (0.6-1.2) mg/dl Glucose 130 H 121 H (70-99(Fasting)) mg/dl Calcium 9.4 9.0 (8.5-10.1) mg/dl AST 22 19 (13-39) U/L ALT 22 18 (7-52) U/L Alkaline Phosphatase 164 H 145 H (34-104) U/L Total Protein 7.4 6.9 (6.0-8.3) gm/dl Albumin 4.3 3.9 (3.4-5.0) gm/dl Intake and Output 02/08/22 02/09/22 02/09/22 22:59 06:59 14:59 Intake Total 100 / 300 200 / 300 Balance 100 / 300 200 / 300 Intake: Oral 100 / 300 200 / 300 Other: Weight 92 kg 92.8 kg Weight Measurement Method Standing Scale Built in [facility] Diagnostic Findings ECHO 02/09/2022 PENDING
[2022-02-09] MEDS ORDERED: PSYLLIUM or GUAR GUM FIBER POWDER PACKET PO SCH (09:00)
[2022-02-09] MEDS ORDERED: PSYLLIUM or GUAR GUM FIBER POWDER PACKET PO STA (16:00)
--- NOTE | 2022-02-09 16:09 | Hospitalist Progress Note ---
Date of Service February 09, 2022 Assessment & Plan (1) 2nd degree AV block: Plan: per Dr. Lyle's notes with addendum: - Admit to tele for 2nd degree AV block and bradycardia in the high 30s as an outpatient today - Not on beta blockade - Lyme testing is negative - Check 2D echo - Consult cardiology - BP elevated currently so will give hydralazine po and monitor, will continue lisinopril daily / HR 40s asymptomatic EP consulted (2) Hypertension: Plan: -Continue lisinopril 30 mg daily (3) Diabetes: Plan: - Was taken off Januvia as outpatient earlier today by PCP, monitor glucose of BMP with am labs - ISS with accuchecks pending readings - A1C= 6.7 from 02/03/22 on outpatient record review - pt reports she has trialed metformin and januvia but didnt tolerate them. BSG 121 (4) Hypothyroidism (acquired): Plan: - Cont levothyroxine, follow TSH and free T4 TSH 0.9 DVT PPx: - teds, scds, Lovenox subcu CODE: Full code Dispo: pending Admission and Anticipated Discharge Date Admission Date: February 08, 2022 Subjective ff up for 2nd deg AV block, etc seen resting in bed, comfortable in good spirits states she feels ok overall no chest pain, dyspnea, palpitations, dizziness feels bloated no other symptoms Review of Systems Review of Systems: all noted and negative except for above Physical Exam Physical Exam: General- oriented x 3, not in distress, speaks in sentences with no effort or accessory muscle use Eyes- anicteric Neck- no JVD Lungs- clear breath sounds bilaterally, no rales/wheezes Heart- bradycardiic rate, regular rhythm; no murmurs Abdomen- normal bowel sounds, nondistended, soft, nontender Extremities- no pretibial edema, no calf tenderness Neuro- alert, oriented x 3; no gross focal neurologic deficits Skin- warm & dry Results & Data Results & Data ([facility] [place]) Vital Signs (Past 12 Hours) Vital Signs Temp Pulse Pulse Resp BP Pulse Ox Pulse Ox 02/09/22 15:48 36.4 C L 40 L 16 151/71 H 95 02/09/22 14:53 38 L 02/09/22 10:56 36.7 C 40 L 16 156/63 H 94 02/09/22 08:00 36.6 C 42 L 18 150/69 H 95 94 02/09/22 07:21 40 L 02/09/22 07:15 36.6 C 40 L 18 150/69 H 94 02/09/22 04:02 36.7 C 38 L 18 128/64 93 all noted and reviewed including below
--- NOTE | 2022-02-09 18:29 | Cardiology Consultation ---
Date of Consultation February 09, 2022 Assessment & Plan (1) Heart block AV second degree: 1. Symptomatic bradycardia secondary to high degree AV block. no reversible causes identified. Plan for dual chamber pacemaker. Normal LV systolic function. History of Present Illness Reason for Consultation: Symptomatic bradycardia Requesting Physician: Armani Attending Physician: Marco Moffett MD History of Present Illness Patient with progressive exertional intolerance and evidence of Mobitz II conduction with resultant bradycardia. she was seen in the outpatient setting sent to the emergency room for evaluation where high-degree AV block was confirmed. No symptoms of chest pain very no symptoms of syncope. While at rest feeling well. Allergies Allergy/AdvReac Type Severity Reaction Status Date / Time Penicillins Allergy Severe Anaphylaxis Verified 02/08/22 17:50 house dust Allergy Intermediate SNEEZING, Verified 02/08/22 17:50 CONGESTION mold Allergy Intermediate SNEEZING, Verified 02/08/22 17:50 CONGESTION Sulfa (Sulfonamide Allergy Intermediate Hives Verified 02/08/22 17:50 Antibiotics) Yeast Allergy Intermediate SNEEZING, Verified 02/08/22 17:50 CONGESTION nickel Allergy Mild Rash Verified 02/08/22 17:50 Iodinated Contrast Media AdvReac Intermediate FACE Verified 02/08/22 17:50 FLUSHES, VOMITING MYCINS Allergy Severe SHORT OF Uncoded 02/08/22 17:50 BREATH, HIVES Home Medications Medication Instructions Recorded Confirmed Type Prevagen 10 mg PO DAILY 02/08/22 02/08/22 History cetirizine 5 mg tablet 5 mg PO DAILY 02/08/22 02/08/22 History cranberry 400 mg capsule 400 mg PO DAILY 02/08/22 02/08/22 History cyanocobalamin (vitamin B-12) 100 100 mcg PO DAILY 02/08/22 02/08/22 History mcg tablet (Vitamin B-12) ibtapzoybmh-xhtitmsyy-gaw C-Mn 500 1 cap PO BID 02/08/22 02/08/22 History mg-400 mg capsule krill 1,000 mg-omega-3 170 mg-dha 1 cap PO DAILY 02/08/22 02/08/22 History 50 mg-epa 80 pw-lhktug-xapzh capsule (krill oil) levothyroxine 112 mcg tablet 112 mcg PO DAILYBB 02/08/22 02/08/22 History lisinopril 30 mg tablet 30 mg PO DAILY 02/08/22 02/08/22 History multivit with min-folic 1 tab PO DAILY 02/08/22 02/08/22 History acid-lutein 200 mcg-137.5 mcg chewable tablet (Adult Multivitamin (w-lutein)) psyllium 1 tbsp PO DAILY 02/08/22 02/08/22 History sucralfate 1 gram tablet 1 g PO TID PRN 02/08/22 02/08/22 History Patient History Medical History (Updated 02/08/22 @ 23:[address] DO) Diabetes Hypertension Hypothyroidism (acquired) Pancreatic cyst Surgical History H/O: hysterectomy History of bowel resection Hx of cholecystectomy Social History Smoking Status: Never smoker Hx Alcohol Use: No Hx Substance Use: No Preferred Language: Turkmen Beliefs That Will Affect Care: None Current Living Situation: Spouse Feels Safe at Home: Yes Assistive Devices: None Review of Systems Review of Systems: Per HPI. No recent systemic illness such as fevers or chills. Physical Exam Physical Exam: She is alert and oriented x3. Mood affect appear normal. She answered all questions appropriately. HEENT: Sclerae are anicteric. Pupils are equal and reactive to light and accommodation. Extraocular movements were intact. Neuro: Cranial nerves intact Neck: Examination of the submandibular region did not reveal any significant lymphadenopathy. Carotids are palpable bilaterally and free of bruits on auscultation. There was no evidence of jugular venous distention. The thyroid was not enlarged. Lungs: Lungs are clear to auscultation bilaterally. There are no rales wheezes or rhonchi. She has normal respiratory effort without use of accessory muscles. There is normal pulmonary excursion. Cardiac: The rhythm was regular. S1 and S2 were normal. There are no murmurs on examination. The PMI was not markedly displaced on palpation. Extremities: Patient has bilateral radial pulses that are equal in intensity. There is no evidence cyanosis or clubbing. There was no evidence of significant peripheral edema bilaterally. Skin: There are no rashes noted on examination today. Results & Data ([facility]) Vital Signs (Past 12 Hours) Vital Signs Temp Pulse Pulse Resp BP Pulse Ox Pulse Ox 02/09/22 16:00 36.4 C L 40 L 18 151/71 H 95 95 02/09/22 15:48 36.4 C L 40 L 16 151/71 H 95 02/09/22 14:53 38 L 02/09/22 10:56 36.7 C 40 L 16 156/63 H 94 02/09/22 08:00 36.6 C 42 L 18 150/69 H 95 94 02/09/22 07:21 40 L 02/09/22 07:15 36.6 C 40 L 18 150/69 H 94 Laboratory Results Screening test for Lyme disease negative. Diagnostic Findings Echocardiogram performed 02/09/2022: Normal LV systolic function with ejection fraction 55-60 percent. No significant valvular heart disease. Aortic valve s clerosis noted PG Care Time/CCT Total # of Minutes Spent Total Time Spent with Patient: Total time spent is greater than 50% in coordination of care (as documented) at patient's floor/unit and/or counseling patient: Coding Level of Care Code 55772 Initial Inpt Care Lvl 3 Diagnoses Heart block AV second degree I44.1
[2022-02-09] MEDS ORDERED: predniSONE 50 MG TAB PO SCH (19:00)
[2022-02-10] MEDS: predniSONE 50 MG TAB PO SCH ×2 (02:43→11:57)
--- NOTE | 2022-02-10 05:46 | Electrocardiogram Report ---
Test Reason : Blood Pressure : / mmHG Vent. Rate : 045 BPM Atrial Rate : 091 BPM P-R Int : 184 ms QRS Dur : 086 ms QT Int : 474 ms P-R-T Axes : 052 -21 059 degrees QTc Int : 410 ms Sinus rhythm with 2nd degree A-V block with 2:1 A-V conduction Possible Left atrial enlargement Abnormal ECG No previous ECGs available Confirmed by Dariel Dutta ([id number]) on 02/10/2022 5:46:40 AM Referred By: REFERRED SELF Confirmed By:Dariel Dutta
[2022-02-10] MEDS ORDERED: diphenhydrAMINE Capsule 25 MG CAP PO SCH (06:00)
[2022-02-10] MEDS: LEVOTHYROXINE SODIUM 112 MCG TABLET PO SCH (06:02)
--- NOTE | 2022-02-10 06:39 | Electrocardiogram Report ---
Test Reason : Blood Pressure : / mmHG Vent. Rate : 040 BPM Atrial Rate : 082 BPM P-R Int : 184 ms QRS Dur : 086 ms QT Int : 514 ms P-R-T Axes : 057 -18 061 degrees QTc Int : 418 ms Sinus rhythm with 2nd degree A-V block with 2:1 A-V conduction Abnormal ECG When compared with ECG of 08-FEB-2022 16:33, No significant change was found Confirmed by Dariel Dutta ([id number]) on 02/10/2022 6:38:33 AM Referred By: REFERRED SELF Confirmed By:Dariel Dutta
--- NOTE | 2022-02-10 07:35 | Cardiology Progress Note ---
Date of Service February 10, 2022 Assessment & Plan (1) Heart block AV second degree: Plan: Second degree HB, Type II- symptomatic with HORTON x2 weeks. She is not currently on any AV natwan blocking agents. Lyme testing negative. -Plans for dual chamber ppm today with Dr. Wright- patient does have a contrast dye allergy resulting in anaphylaxis. (2) Hypertension: Plan: Normally well controlled as an outpatient on Lisinopril. Will hold off on changes at this time. Can consider increase in Lisinopril to 40 mg daily should BP remain uncontrolled. Plan: Case discussed with Dr. Lomeli. Admission and Anticipated Discharge Date Admission Date: February 08, 2022 Supervising Physician Co-Signing Physician Notes Patient seen and examined with SHIRLEY Vo. Agree with findings and assessment as above. Subjective 76 year old female. Does not follow with outpatient cardiology. Seen by PCP yesterday for a routine appt. Did have concerns of dyspnea x2 weeks- started after her 4th covid booster. EKG done- found to be in a second degree AV block, Mobitz II. Heart rates in the 30s. She was not on any AV antwan blocking agents. Just took lisinopril for HTN. Renal function stable. No electrolyte abnormalities. Lyme testing negative. CXR negative. Seen by EP, Dr. Wright, yesterday- 02/09- plans for DCP today. Echo 02/09: rhythm during exam was SR with Mobitz 2 with 2:1 pattern, normal LV thickness, LVEF 55-60%, no WMA, Mild aortic sclerosis without stenosis, focal calcification on noncoronary cusp. Labs this am: Tele: Second degree AV block, Mobitz II- 40 bpm Upon entrance into the room patient was lying in bed without acute distress. Continues to have shortness of breath with exertion.No chest pain, palpitations, dizziness, syncope or near syncope. Does note fatigue and low stamina. No orthopnea, PND, or increased lower extremity edema. No fever, chills, cough, hematochezia, melena, or hemoptysis. Review of Systems Review of Systems: All systems reviewed & are unremarkable except as noted in HPI & below Physical Exam Physical Exam: General: No acute distress. A+Ox3. HEENT: Normocephalic. Atraumatic. Conjunctiva and sclera clear. NECK: No carotid bruits. No JVD. Carotid upstrokes are brisk. Heart: RRR. S1 and S2 noted without murmur, rubs, gallops. PMI non displaced. Lungs: Clear to auscultation. No wheezes, rhonchi, rales. Abdomen: Normal bowel sounds. Soft. Nontender. No masses or organomegaly. No abdominal bruits. Extremities: No edema. No clubbing or cyanosis. Pulses: radial=2/4, posterior tibial=2/4, dorsalis pedis = 2/4. NEURO: No focal deficits. PSYCH: Normal. Results & Data ([facility]) Vital Signs (Past 12 Hours) Vital Signs Temp Pulse Pulse Resp BP BP Pulse Ox 02/10/22 07:17 36.4 C L 43 L 18 146/64 H 93 02/10/22 03:59 36.5 C 94 H 18 135/64 94 02/09/22 22:49 36.9 C 40 L 20 147/69 H 96 02/09/22 22:18 42 L Laboratory Results Intake and Output 02/09/22 02/10/22 02/10/22 22:59 06:59 14:59 Other: Other Intake Source NPO # Unmeasured Voids 3 1 Weight 90.9 kg Weight Measurement Method Standing Scale
[2022-02-10] MEDS: INSULIN ASPART PER UNIT SC SCH ×4 (07:48→21:59)
[2022-02-10] MEDS: CYANOCOBALAMIN (B-12) 100 MCG TABLET PO SCH (07:57)
[2022-02-10] MEDS: CETIRIZINE HCL 10 MG TABLET PO SCH (07:57)
[2022-02-10] MEDS: ENOXAPARIN INJ 40 MG/0.4 ML SYR SQ SCH (07:57)
[2022-02-10] MEDS: lisinopril 10 MG TAB PO SCH (07:58)
[2022-02-10] MEDS ORDERED: BUPIVACAINE 0.25% 30 ML VIAL ONE (09:28)
[2022-02-10] MEDS ORDERED: VANCOMYCIN HCL 1000MG/20ML VIAL ONE (09:28)
[2022-02-10] MEDS ORDERED: WATER, STERILE FOR INJ 10 ML VIAL ONE (09:28)
[2022-02-10] MEDS ORDERED: LIDOCAINE 1% LOCAL 20 ML VIAL ONE (09:28)
[2022-02-10] MEDS ORDERED: CLINDAMYCIN PHOS 300 MG/2 ML VIAL ONE (09:39)
--- NOTE | 2022-02-10 09:40 | Pre Anesthesia Assessment ---
Date of Service February 10, 2022 Pre Sedation Assessment Vital Signs Temp Pulse Pulse Resp BP BP Pulse Ox 02/10/22 09:34 49 L 164/72 H 93 02/10/22 08:00 02/10/22 07:17 36.4 C L 43 L 18 146/64 H 93 02/10/22 03:59 36.5 C 94 H 18 135/64 94 02/09/22 22:49 36.9 C 40 L 20 147/69 H 96 02/09/22 22:18 42 L 02/09/22 19:01 36.8 C 42 L 18 155/66 H 94 02/09/22 16:00 36.4 C L 40 L 18 151/71 H 95 02/09/22 15:48 36.4 C L 40 L 16 151/71 H 95 02/09/22 14:53 38 L 02/09/22 10:56 36.7 C 40 L 16 156/63 H 94 Pulse Ox 02/10/22 09:34 02/10/22 08:00 93 02/10/22 07:17 02/10/22 03:59 02/09/22 22:49 02/09/22 22:18 02/09/22 19:01 02/09/22 16:00 95 02/09/22 15:48 02/09/22 14:53 02/09/22 10:56 Cardiovascular + regular rhythm and + bradycardic Respiratory + respiratory effort normal Pre-Sedation Airway Assessment Smoking Status: Never smoker Hx Sleep Apnea: No Hx Difficult Intubation: No Short, Thick Neck: No Thyromental Distance: > or= 3.5 Finger Breadths Oral Cavity: + WNL Mallampati Class: III ASA: ASA3 NPO Status Date of Last Intake of Fluids: 02/10/22 Date of Last Intake of Solid Food: 02/09/22 Procedure Planning Contraindications for Sedation: none Current Medications Reviewed: Yes Notes The planned sedation has been discussed with the patient. Informed Consent was obtained. I have identified the patient, determined the appropriateness of sedation and have assessed the patient immediately prior to the procedure. All medicine(s) and interventions are by my order.
[2022-02-10] MEDS ORDERED: MIDAZOLAM HCL 5 MG/ML 1 ML VIAL ONE (09:43)
[2022-02-10] MEDS ORDERED: fentaNYL citrate 100 MCG/2 ML VIAL ONE (09:44)
[2022-02-10] MEDS ORDERED: VANCOMYCIN CONSULT ACTIVE PRN (09:51)
[2022-02-10] MEDS ORDERED: VANCOMYCIN HCL 1,000 MG/270 ML BAG IV SCH (10:15)
--- NOTE | 2022-02-10 11:19 | Post Anesthesia Assessment ---
Date of Service February 10, 2022 Post Sedation Assessment Vital Signs Temp Pulse Pulse Resp BP BP Pulse Ox 02/10/22 09:34 49 L 164/72 H 93 02/10/22 08:00 02/10/22 07:17 36.4 C L 43 L 18 146/64 H 93 02/10/22 03:59 36.5 C 94 H 18 135/64 94 02/09/22 22:49 36.9 C 40 L 20 147/69 H 96 02/09/22 22:18 42 L 02/09/22 19:01 36.8 C 42 L 18 155/66 H 94 02/09/22 16:00 36.4 C L 40 L 18 151/71 H 95 02/09/22 15:48 36.4 C L 40 L 16 151/71 H 95 02/09/22 14:53 38 L Pulse Ox 02/10/22 09:34 02/10/22 08:00 93 02/10/22 07:17 02/10/22 03:59 02/09/22 22:49 02/09/22 22:18 02/09/22 19:01 02/09/22 16:00 95 02/09/22 15:48 02/09/22 14:53 Recovery Score Activity: Moves 4 extremities Respiration: Deep Breath/Cough Circulation: +/-20% PreAnes Value Consciousness: Arouseable (by name) Oxygen Saturation: O2 needed for >90% Discharge Sedation Level of Care: Fast Track Phase II Post Sedation Plan On clinical assessment, the patient appears to have tolerated the sedation without complications. Patient is recovering as anticipated. Patient will continue to be monitored by nursing and may be discharged when sedation discharge criteria are met per below protocol. Upon Completions of procedure up to 15 minutes continue every 5 minute vital signs and the P.A.R. score; then discharge to a Phase I or Fast Track to Phase II per the following guidelines: * Discharge Patient to appropriate Phase II area if PAR is 8 or greater or return to pre- procedure baseline. The post - procedure orders will be as directed. * If PAR score is less than 8 or not return to pre-procedure baseline then patient will follow Phase I monitoring till PAR is reached for Phase II. The Phase I may be done in procedure room or may call to secure a Phase I area. * If naloxone or flumazenil are used for reversal, hold in Phase I for continued monitoring from when last reversal dose was given for a minimum of 60 minutes or longer pending the nurse and/or physician discretion of patient condition before discharge to Phase II. Please call the Sedation Physician to re-evaluate and complete post-note for discharge to Phase II area. Do NOT discharge from procedure sedation or Phase 1 until post- sedation evaluation note is complete by procedure /sedation MD Sedation Discharge Instructions to be given to the patient at discharge to home.
[2022-02-10] MEDS ORDERED: oxyCODONE HCL IR 5 MG TAB (IMMEDIATE RELEASE) PO PRN (11:20)
--- NOTE | 2022-02-10 11:20 | Electrophysiology Report ---
Date of Service February 10, 2022 Electrophysiology Procedure Electrophysiology Procedure Report Procedure performed: Implantation of dual-chamber permanent pacemaker with left bundle pacing lead Staff automatic furnace operator: Harris Wright MD Indication: The patient is a 76-year-old woman who presented to the hospital with symptomatic bradycardia due to high-grade AV conduction disease. She was advised undergo implantation of dual-chamber permanent pacemaker due to symptomatic nonreversible AV node dysfunction. A dual-chamber device was selected as she is currently in sinus rhythm and wished to maintain AV synchrony. Procedure in detail: The patient was informed of the risks benefits and alternatives to the intended procedure and she wished to proceed. She was taken to the electrophysiology suite in a fasting state. A preoperative antibiotic had been administered. The patient was monitored electrocardiographically throughout today's procedure and conscious sedation was administered per protocol. The left upper pectoral area is prepped and draped in usual sterile fashion. This area was anesthetized using subcutaneous administration of a xylocaine solution. An incision was made at this site and carried down to the prepectoralis fascia using sharp dissection. Electrocautery was also employed for dissection as well as for hemostasis. A device pocket was fashioned tissues above the pectoralis muscle. Subsequent to this maneuver the left axillary vein was accessed using modified Seldinger technique. Sheath was placed over guidewire at the site use facilitate passage of a guiding catheter for mapping of the interventricular septum. A pacing lead was placed in the interventricular septum and pacing morphology was monitored. Once an adequate position was obtained the guiding catheter and sheath were removed. The proximal portion of the lead was then sutured to the prepectoralis fascia using nonabsorbable suture. A second sheath was placed over guidewire and use facilitate passage of the right atrial lead under fluoroscopic guidance. Adequate sensing and threshold parameters were obtained prior to active fixation of this lead to the endocardial surface. The proximal portion of lead was then sutured the prepectoralis fascia using nonabsorbable suture. The device pocket was irrigated with antibiotic solution. The leads were then attached to the device. The device and leads were then placed in the pocket and pocket was closed in 3 layers of absorbable suture. Steri-Strips and sterile dressing were applied. The device was tested noninvasively prior to conclusion the procedure. The patient tolerated procedure well there no immediate co mplications. Equipment used: New pulse generator: [employer]. Model number: [id number] serial number [id number] Right atrial lead: [employer]er [employer] Driver [employer]. Model number: 5076 serial number [id number] Right ventricular lead: [employer]. Model number: 3830 serial number [id number] Measured data: Right atrial lead: P waves measured 2.8 mV. Pacing threshold was 1 V at 0.4 ms with a pacing impedance of 494 ohms Right ventricular lead: R waves measured 9.6 mV. Pacing threshold was 1.25 V at 0.4 ms with a paced impedance of 760 ohms Impression: Successful implantation of dual-chamber permanent pacemaker with left bundle pacing lead [facility] Electrophysiology codes Pacing Procedure 1: Pacin Insert/Replace Pacer A & V PG Moderate Sedation Codes Moderate Sedation Codes Procedure 1: Sedation/Anesthesia: 72752 Mod Sedation by the same physician;Init15 Min Child Age 5 & Up Procedure 2: Sedation/Anesthesia: 97856 Mod Sedation by the same physician; Ea [id number] Minutes
--- NOTE | 2022-02-10 11:46 | Hospitalist Progress Note ---
Date of Service February 10, 2022 Assessment & Plan (1) 2nd degree AV block: Plan: per Dr. Lyle's notes with addendum: - Admit to tele for 2nd degree AV block and bradycardia in the high 30s as an outpatient today - Not on beta blockade - Lyme testing is negative - Check 2D echo - Consult cardiology - BP elevated currently so will give hydralazine po and monitor, will continue lisinopril daily 4/14 HR 40s asymptomatic EP consulted: for pacemaker placement today (2) Hypertension: Plan: -Continue lisinopril 30 mg daily (3) Diabetes: Plan: - Was taken off Januvia as outpatient earlier today by PCP, monitor glucose of BMP with am labs - ISS with accuchecks pending readings - A1C= 6.7 from 02/03/22 on outpatient record review - pt reports she has trialed metformin and januvia but didnt tolerate them. BSG 168 Left Lateral Rib Pain - likely musculoskeletal pain - Lidoderm patch (4) Hypothyroidism (acquired): Plan: - Cont levothyroxine, follow TSH and free T4 TSH 0.9 DVT PPx: - teds, scds, Lovenox subcu CODE: Full code Dispo: pending Admission and Anticipated Discharge Date Admission Date: February 08, 2022 Subjective ff up for 2nd degree heart block, etc seen resting in bed, comfortable states she feels fine overall except for mild left lateral rib pain, point tenderness, worse with movement no chest pain, dyspnea, palpitations, dizziness no other symptoms Review of Systems Review of Systems: all noted and negative except for above Physical Exam Physical Exam: General- oriented x 3, not in distress, speaks in sentences with no effort or accessory muscle use Eyes- anicteric Neck- no JVD Lungs- clear BS bilaterally, no rales/wheezes left lateral chest wall: no erythema/warmth/edema (+) point tenderness on the left lower rib area Heart- normal rate, regular rhythm; no murmurs Abdomen- normal bowel sounds, nondistended, soft, nontender Extremities- no pretibial edema, no calf tenderness Neuro- alert, oriented x 3; no gross focal neurologic deficits Skin- warm & dry Results & Data Results & Data ([facility]) Vital Signs (Past 12 Hours) Vital Signs Temp Pulse Resp BP BP Pulse Ox Pulse Ox 02/10/22 11:31 80 18 180/69 H 92 02/10/22 09:34 49 L 164/72 H 93 02/10/22 08:00 93 02/10/22 07:17 36.4 C L 43 L 18 146/64 H 93 02/10/22 03:59 36.5 C 94 H 18 135/64 94 all noted and reviewed including below
[2022-02-10] MEDS: LIDOCAINE 5% 1 PATCH TD SCH (12:50)
[2022-02-10] MEDS ORDERED: CETIRIZINE HCL 10 MG TABLET PO ONE (22:38)
[2022-02-11] MEDS ORDERED: VANCOMYCIN HCL 1,000 MG/270 ML BAG IV SCH (06:00)
[2022-02-11] MEDS: LEVOTHYROXINE SODIUM 112 MCG TABLET PO SCH (06:15)
--- NOTE | 2022-02-11 07:45 | Cardiology Progress Note ---
Date of Service February 11, 2022 Assessment & Plan (1) Heart block AV second degree: Plan: Second degree HB, Type II- symptomatic with HORTON x2 weeks. She is not currently on any AV antwan blocking agents. Lyme testing negative. Patient does have a contrast dye allergy resulting in anaphylaxis. -S/p DCP with left bundle pacing lead placement yesterday 02/[address] Wright. -I will arrange for outpatient cardio follow up in 4-6 weeks as well as establishing with the pacer clinic at . (2) Hypertension: Plan: Controlled- no changes needed at this time. Plan: Case discussed with Dr. Sanchez. Stable from a cardiac standpoint for discharge. Admission and Anticipated Discharge Date Admission Date: February 08, 2022 Supervising Physician Co-Signing Physician Notes I have discussed the case with the nurse practitioner. I agree the patient can be discharged home with outpatient follow-up. Subjective 76 year old female. Does not follow with outpatient cardiology. Seen by PCP yesterday for a routine appt. Did have concerns of dyspnea x2 weeks- started after her 4th covid booster. EKG done- found to be in a second degree AV block, Mobitz II. Heart rates in the 30s. She was not on any AV antwan blocking agents. Just took lisinopril for HTN. Renal function stable. No electrolyte abnormalities. Lyme testing negative. CXR negative. Underwent DCP with left bundle pacing lead placement yesterday 02/[address] Wright. Echo 02/09: rhythm during exam was SR with Mobitz 2 with 2:1 pattern, normal LV thickness, LVEF 55-60%, no WMA, Mild aortic sclerosis without stenosis, focal calcification on noncoronary cusp. 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 No further shortness of breath. Energy improved. No chest pain, palpitations, dizziness, syncope or near syncope. No orthopnea, PND, or increased lower extremity edema. No fever, chills, cough, hematochezia, melena, or hemoptysis. Just completed her CXR- device interogated this am with Dr. Wright. Incision site healing. Patient is hopeful to go home today. Review of Systems Review of Systems: All systems reviewed & are unremarkable except as noted in HPI & below Physical Exam Physical Exam: General: No acute distress. A+Ox3. HEENT: Normocephalic. Atraumatic. Conjunctiva and sclera clear. NECK: No carotid bruits. No JVD. Carotid upstrokes are brisk. Heart: RRR. S1 and S2 noted without murmur, rubs, gallops. Left chest incision site well aprox, dressing clean dry and intact. Lungs: Clear to auscultation. No wheezes, rhonchi, rales. Abdomen: Normal bowel sounds. Soft. Nontender. No masses or organomegaly. No abdominal bruits. Extremities: No edema. No clubbing or cyanosis. Pulses: radial=2/4, posterior tibial=2/4, dorsalis pedis = 2/4. NEURO: No focal deficits. PSYCH: Normal. Results & Data ([facility]) Vital Signs (Past 12 Hours) Vital Signs Temp Pulse Pulse Resp BP Pulse Ox 02/11/22 03:51 36.5 C 78 18 129/71 94 02/10/22 22:32 36.8 C 83 18 142/96 H 91 02/10/22 22:18 92 H
[2022-02-11 07:58] LABS: Creatinine Clr Calc Pharmacy 57.9 ml/min; Est GFR (African American) 66.7 ml/min; Est GFR (Non-African American) 57.5 ml/min
[2022-02-11] MEDS: INSULIN ASPART PER UNIT SC SCH ×2 (08:03→12:17)
[2022-02-11] MEDS: lisinopril 10 MG TAB PO SCH (08:37)
[2022-02-11] MEDS: CETIRIZINE HCL 10 MG TABLET PO SCH (08:37)
[2022-02-11] MEDS: LIDOCAINE 5% 1 PATCH TD SCH (08:38)
[2022-02-11] MEDS: CYANOCOBALAMIN (B-12) 100 MCG TABLET PO SCH (08:38)
[2022-02-11] MEDS: ENOXAPARIN INJ 40 MG/0.4 ML SYR SQ SCH (08:38)
--- NOTE | 2022-02-11 09:40 | XRay Report ---
TWO VIEW CHEST CLINICAL HISTORY: Pacemaker implantation. FINDINGS: PA and lateral chest radiographs are compared to study dated 02/08/2022. A 2-lead cardiac pa cemaker has been placed and partially obscures the left mid chest. Leads project over the right atria l appendage and right ventricle. The heart is mildly enlarged noting atherosclerotic calcification of the thoracic aorta. The pulmonary vasculature is noncongested. Chronic interstitial thickening is si milar to previous. There is mild bibasilar scarring/atelectasis. No airspace consolidation or pleural effusion is identified. There is no pneumothorax. The bony thorax appears intact. Cholecystectomy cl ips are seen in the right upper quadrant. IMPRESSION: 1. A 2-lead cardiac pacemaker has been placed as above. No pneumothorax is identified post procedure. 2. Mild cardiomegaly with no radiographic evidence of congestive failure. 3. No airspace consolidation or pleural effusion is identified. ACT 112: Negative or not required by law. Electronically signed by: Keo Glasgow M.D. 02/11/2022 9:38 AM
--- NOTE | 2022-02-11 14:59 | Hospitalist Progress Note ---
Date of Service February 11, 2022 Assessment & Plan (1) Heart block AV second degree: Plan: (1) 2nd degree AV block: Plan: per Dr. Lyle's notes with addendum: - Admit to tele for 2nd degree AV block and bradycardia in the high 30s as an ou tpatient today - Not on beta blockade - Lyme testing is negative - Check 2D echo - Consult cardiology - BP elevated currently so will give hydralazine po and monitor, will continue lisinopril daily 02/10: S/p DCP with left bundle pacing lead placement by Dr. Wright. HR improved from 40s to 90s evaluated by Cardiology [facility] today, ok for discharge ff up with PCP in 1 week Cardiology ff up in 1 week (2) Hypertension: Plan: -Continue lisinopril 30 mg daily (3) Diabetes: Plan: - Was taken off Januvia as outpatient earlier today by PCP, monitor glucose of BMP with am labs - ISS with accuchecks pending readings - A1C= 6.7 from 02/03/22 on outpatient record review - pt reports she has trialed metformin and januvia but didnt tolerate them. C BSG 168 Left Lateral Rib Pain - likely musculoskeletal pain - Lidoderm patch relieving pain ff up with PCP (4) Hypothyroidism (acquired): Plan: - Cont levothyroxine TSH 0.9 DVT PPx: - teds, scds, Lovenox subcu CODE: Full code Dispo: d/c home today ff up with PCP in 1 week Beekeeper Farmer in 1 week Admission and Anticipated Discharge Date Admission Date: February 08, 2022 Subjective ff up for 2nd degree AV block, etc seen resting in bed, comfortable in good spirits states she feels fine overall no pain over the PM site no chest pain, dyspnea, palpitations, dizziness ambulating in the halls with no problems L lateral chest wall pain is better no other symptoms states she is ready for discharge today Review of Systems Review of Systems: all noted and negative except for above Physical Exam Physical Exam: General- oriented x 3, not in distress, speaks in sentences with no effort or accessory muscle use Eyes- anicteric Neck- no JVD Lungs- clear breath sounds bilaterally Heart- normal rate, regular rhythm; no murmurs Abdomen- normal bowel sounds, nondistended, soft, nontender Extremities- no pretibial edema, no calf tenderness Neuro- alert, oriented x 3; no gross focal neurologic deficits Skin- warm & dry Results & Data Results & Data ([facility]) Vital Signs (Past 12 Hours) Vital Signs Temp Pulse Pulse Resp BP Pulse Ox Pulse Ox 02/11/22 11:58 37.5 C 76 20 126/73 94 02/11/22 11:10 88 02/11/22 09:07 36.5 C 76 20 124/76 94 02/11/22 08:00 94 02/11/22 03:51 36.5 C 78 18 129/71 94 all noted and reviewed including below
--- NOTE | 2022-02-11 15:15 | Discharge Summary ---
Date of Service February 11, 2022 Admission HPI Per Admitting Provider This is a 76-year-old female with PMHx of HTN, DM type II, obesity, hypothyroidism, fibromyalgia, osteoarthritis, vitamin D deficiency, pancreatic cyst, and bradycardia who presented to her PCP for routine follow-up and found to be bradycardic with a heart rate in the high 30s at outpatient office and EKG showed second-degree block so was referred to the ER. Patient admits to having dyspnea on exertion which has been going on for the past 2 weeks. She states she had her second covid booster shot 2 weeks ago and since then she has not been feeling herself. She had a pneumonia shot today in the office and her left arm is sore again.She does not have any other cardiac complaints- denies headache, lightheadedness, palpitations, or abdominal complaints. She lives at home with her and a grandson, her daughter is here at bedside. She does not wear O2 at baseline and walks without ambulatory assistive device. Many years ago, she was hospitalized for endocarditis and spent a week in the ICU. After that point she was told to not do anything physically exertional for 6 months, and on repeat imaging studies her heart had healed. She has not followed with cardiology for any other reason. She took all her routinely scheduled medications earlier today. Admission Exam Per Admitting Provider General: awake, alert, no apparent distress, +obese Head: Normocephalic, atraumatic ENT: PERRL, EOMI, no pharyngeal exudate, mucous membranes moist Chest: Clear to auscultation, on room air, no adventitious breath sounds Cardiac: Bradycardic with HR in the 40s, no murmur, no JVD, normal peripheral pulses, good capillary refill Abdominal: NABS x 4 quadrants, soft, nondistended, nontender to palpation, no rebound or guarding Extremities: Normal inspection, no peripheral edema or erythema, calfs nontender to palpation Psych: Normal mood and affect Neuro: AAO x 3, strength intact bilaterally and rated 5/5, no motor deficits, speech is clear, no peripheral sensory deficits Principal Diagnosis 2nd DEGREE HEART BLOCK S/P PACEMAKER PLACEMENT Discharge Exam General- oriented x 3, not in distress, speaks in sentences with no effort or accessory muscle use Eyes- anicteric Neck- no JVD Lungs- clear breath sounds bilaterally Heart- normal rate, regular rhythm; no murmurs Pacemaker site: wound well opposed, no bleeding or discharge, faint erythema surrounding the area, no swelling very mild tenderness Abdomen- normal bowel sounds, nondistended, soft, nontender Extremities- no pretibial edema, no calf tenderness Neuro- alert, oriented x 3; no gross focal neurologic deficits Skin- warm & dry Discharge Data Allergies Allergy/AdvReac Type Severity Reaction Status Date / Time Penicillins Allergy Severe Anaphylaxis Verified 02/08/22 17:50 house dust Allergy Intermediate SNEEZING, Verified 02/08/22 17:50 CONGESTION mold Allergy Intermediate SNEEZING, Verified 02/08/22 17:50 CONGESTION Sulfa (Sulfonamide Allergy Intermediate Hives Verified 02/08/22 17:50 Antibiotics) Yeast Allergy Intermediate SNEEZING, Verified 02/08/22 17:50 CONGESTION nickel Allergy Mild Rash Verified 02/08/22 17:50 Iodinated Contrast Media AdvReac Intermediate FACE Verified 02/08/22 17:50 FLUSHES, VOMITING MYCINS Allergy Severe SHORT OF Uncoded 02/08/22 17:50 BREATH, HIVES Consultations 02/08/22 18:20 ED Decision to Admit Stat 02/08/22 20:21 Consult Cardiology Routine 02/09/22 11:54 Consult Cardiac Electrophysiology Routine Procedures Performed Operation Date: 02/10/22 09:30 Actual Procedures p Lead LV (No Priopr Implant) - Harris Wright MD s Pacer with A/V Leads (Dual) - Harris Wright MD Ordered Studies 02/10/22 10:00 EP Lab Images for PACS ONCE Hospital Course (1) Heart block AV second degree: (1) 2nd degree AV block: Plan: per Dr. Lyle's notes with addendum: - Not on beta blockade - Lyme testing is negative 02/10: S/p DCP with left bundle pacing lead placement by Dr. Wright. HR improved from 40s to 90s evaluated by Cardiology [facility] today, ok for discharge ff up with PCP in 1 week Cardiology ff up 02/24 [facility] Instructions provided (2) Hypertension: Plan: -Continue lisinopril 30 mg daily (3) Diabetes: Plan: - Was taken off Januvia as outpatient earlier today by PCP, monitor glucose of BMP with am labs - ISS with accuchecks pending readings - A1C= 6.7 from 02/03/22 on outpatient record review - pt reports she has trialed metformin and januvia but didnt tolerate them. C BSG 168 Left Lateral Rib Pain - likely musculoskeletal pain - Lidoderm patch relieving pain ff up with PCP (4) Hypothyroidism (acquired): Plan: - Cont levothyroxine TSH 0.9 Dispo: d/c home ff up with PCP in 1 week Systems Development Manager in 1 week Total Time Total Time Spent Total Time Spent (In Minutes): >30 minutes Discharge Plan Discharge Items Patient Disposition: Home - Self-Care Reason For Visit: 2ND DEGREE AV BLOCK, BRADYCARDIA Discharge Diagnosis: 2ND DEGREE AV BLOCK PACEMAKER PLACEMENT Activity: Per Instructions section Lifting: Wait until after follow-up appointment Exercise/Sports: Wait until after follow-up appointment Driving/Machine Use: NO DRIVING UNTIL RE-EVALUATED AND ALLOWED BY PRIMARY CARE PHYSICIAN Non-emergency contact: Primary Care Provider Call non-emergency contact if: you have any medication questions, your symptoms worsen, your pain is not controlled, your pain is worsening, your pain is unusual for you, your pain is concerning for you and you have a fever Follow-up/Referrals: Connie Leblanc MD [Family Provider] - (Date & Time 02/15/2022 11:50 AM Provider Sharmin Alejo DO Department Family Medicine [facility] ) Bonita Salinas CRNP [Nurse Practitioner] - (Date & Time 02/24/2022 10:30 AM Provider [facility]er [facility] Department Cardiology, [facility] Date & Time 02/24/2022 11:30 AM Provider SHIRLEY Celis Department Cardiology, [facility] ) Diet: Heart Healthy Addtl Attending Provider Instructions: ACTIVITY RECOMMENDATIONS: * Do not raise affected arm over head for 2 weeks. SPECIAL CARE INSTRUCTIONS: * If bleeding occurs, apply direct pressure to area for 5 minutes. * Call your doctor if you have severe pain, fever, drainage or bleeding at site. * Keep dressing on and dry for 48 hours then remove. * Keep any scheduled doctor's appointment. * Implant Card - hand held device with website information given. SKIN IRRITATION: * You may experience some redness and/or swelling in the area where radiation was administered. If any skin irritation occurs, please contact your family physician. FOLLOW UP VISIT: Follow up with Cardiology Clinic SHIRLEY Salinas as outlined above. ------- PLEASE CONTINUE YOUR USUAL MEDICATION REGIMEN. YOU MAY OBTAIN LIDODERM PATCH 4% OVER THE COUNTER AND PLACE OVER PAINFUL AREA ON THE LEFT LOWER RIB AREA. PLEASE CALL YOUR PRIMARY CARE PHYSICIAN OR RETURN TO THE ER IF WITH WORSENING OF SYMPTOMS, INCLUDING CHEST PAIN, SHORTNESS OF BREATH, PALPITATIONS, DIZZINESS, ETC FOLLOW UP WITH PRIMARY CARE PHYSICIAN OUTLINED ABOVE. Pending Studies at Discharge: No Stand-Alone Forms: My [facility] [employer] Apps, Smoking Cessation Medications and DC Order Prescriptions: Continued cyanocobalamin (vitamin B-12) [Vitamin B-12] 100 mcg Tablet 100 mcg PO DAILY RF: 0 cetirizine [Zyrtec] 5 mg Tablet 5 mg PO DAILY RF: 0 sucralfate 1 gram tablet 1 g PO TID PRN (Reason: ABD PAIN) RF: 0 Metamucil Smooth Texture S/F Powder 1 tbsp PO DAILY RF: 0 lisinopril 30 mg tablet 30 mg PO DAILY RF: 0 cranberry 400 mg Capsule 400 mg PO DAILY RF: 0 levothyroxine 112 mcg Tablet 112 mcg PO DAILYBB RF: 0 aibffdfcpio-botpcfpex-jxi C-Mn [Glucosamine 1500 Complex] 500-400 mg Capsule 1 cap PO BID RF: 0 fz-eyq-xwpue acid-lutein [Adult Multivitamin (w-lutein)] 200-137.5 mcg Tablet,Chewable 1 tab PO DAILY RF: 0 gcfir-is-9-ojm-nzy-tzxuzcp-ast [krill oil] 1,300-249-27-80 mg Capsule 1 cap PO DAILY RF: 0 Prevagen 10 mg PO DAILY RF: 0 Discharge Orders: Discharge Order (Routine); Ordered 02/11/22 Ordered By: Marco Mckeon/Other Patient Handouts: Managing Type 2 Diabetes, Diabetes: Meal Planning Admission Data Admit Date/Time: 02/08/22 18:26 Attending Provider: Marco Moffett Admit Provider: Jayson Arevalo Primary Care Provider: PCP,NO Other Providers: Jayson Arevalo ; Zaid Lomeli ; Harris Wright
--- NOTE | 2022-02-11 21:50 | Electrocardiogram Report ---
Test Reason : Blood Pressure : / mmHG Vent. Rate : 083 BPM Atrial Rate : 083 BPM P-R Int : 226 ms QRS Dur : 102 ms QT Int : 412 ms P-R-T Axes : 035 -44 089 degrees QTc Int : 484 ms Atrial-sensed ventricular-paced rhythm with prolonged AV conduction Abnormal ECG When compared with ECG of 09-FEB-2022 16:02, Ventricular pacing is now present Vent. rate has increased BY 43 BPM Confirmed by Dariel Dutta ([id number]) on 02/11/2022 9:50:00 PM Referred By: REFERRED SELF Confirmed By:Dariel Dutta
== END 2022-02-11 17:27 | disposition home or self-care (01) ==
LOC: ED 16:16 → 2S 18:26 → SUATTDRO 18:26 → INTOOBSV 18:26 → 2S 19:56